=== PATIENT | male | born 1945 | race Caucasian/White ===

== ENCOUNTER 2019-02-17 15:22 | Observation (INO) ==
[2019-02-17 16:03] LABS: BE 2.3 mmoll (-2.0-2.0); BLOOD TYPE VENOUS; HCO3-(ACT) 24.8 mmoll (22-27); PCO2(98.6) 45 mmHg (40-60); PO2(98.6) 16 mmHg (30-55); SAMPLE BLOOD; SAO2 44.1 % (40.0-85.0)
[2019-02-17 16:05] LABS: BASO# 0.04 X1000 (0.0-0.2); BASO% 0.7 % (0.0-0.8); EOS% 1.7 % (0.0-10.0); HEMATOCRIT 49.3 % (42.0-52.0); HEMOGLOBIN 16.9 g/dL (14.0-18.0); IMM GRAN# 0.01 X1000 (0.0-0.04); IMM GRAN% 0.2 % (0.0-0.5); LYMPH# 1.24 X1000 (1.2-3.4); LYMPH% 20.9 % (20.5-51.1); MCH 31.7 PG (27-31); MCHC 34.3 g/dL (33-37); MCV 92.5 FL (81-99); MONO# 0.64 X1000 (0.11-0.59); MONO% 10.8 % (1.7-9.3); MPV 11.6 FL (7.4-10.4); NEUT# 3.91 X1000 (1.4-6.5); NEUT% 65.7 % (42.2-75.2); PLT 113 X1000 (130-400); RBC 5.33 XMIL (4.7-6.1); RDW 13.1 % (11.5-14.5); WBC 5.94 X1000 (4.8-10.8)
[2019-02-17 16:19] LABS: PTT 30.3 Seconds (22.3-41.8)
[2019-02-17 16:20] LABS: BILIRUBIN URINE NEGATIVE (NEGATIVE); BLOOD URINE NEGATIVE (NEGATIVE); CLARITY CLEAR (CLEAR); COLOR YELLOW; GLUCOSE URINE NEGATIVE (NEGATIVE); KETONE URINE TRACE mg/dL (NEGATIVE); LEUKOCYTES URINE TRACE (NEGATIVE); NITRITE URINE NEGATIVE (NEGATIVE); PROTEIN URINE TRACE mg/dL (NEGATIVE); UROBILINOGEN URINE NORMAL
[2019-02-17 16:22] LABS: AGAP 10; BUN 11 mg/dL (8-22); CHLORIDE 106 mmol/L (98-107); COSMO 284; ESTIMATED GFR > 60; GLUCOSE 130 mg/dL (70-104); POTASSIUM 4.5 mmol/L (3.5-5.1); SODIUM 142 mmol/L (136-145); TCO2 27 mmol/L (25-35)
[2019-02-17 16:25] LABS: INR 1.01; PROTIME 13.8 Seconds (11.0-16.0); URINE SOURCE CLEAN CATCH
--- NOTE | 2019-02-17 16:29 | Diag Imaging Result Doc PS360 ---
EXAM: CT HEAD W/O CONTRAST HISTORY: TIA TECHNIQUE: Images were obtained from the skull base to vertex without IV contrast as per standard protocol. COMPARISON: 12/02/2016 FINDINGS: EXAM: CT HEAD W/O CONTRAST HISTORY: TIA TECHNIQUE: COMPARISON: None. FINDINGS: There are no extra-axial collections. There is no evidence for acute infarct or hemorrhage. There is no midline shift or mass effect. There is no hydrocephalus. There is unchanged hypodensity within the deep white matter which is nonspecific in appearance but likely related to microvascular disease. Unchanged old left lacunar infarct. There is diffuse cerebral atrophy. IMPRESSION: Atrophy and microvascular disease. No acute intracranial abnormality is appreciated. This exam was performed using automated exposure control, adjustment of mA or kV according to patient size, and/or use of iterative reconstruction technique. IMPRESSION: This exam was performed using automated exposure control, adjustment of mA or kV according to patient size, and/or use of iterative reconstruction technique. Electronically signed by Shae Raphael 02/17/2019 4:27 PM
[2019-02-17 16:30] LABS: URINE BACTERIA NEGATIVE /HFP; URINE CAST NONE SEEN /LPF; URINE CRYSTAL NONE SEEN /HPF; URINE EPITHELIAL CELLS <10 /HPF (<10); URINE RBC <10 /HPF (<10); URINE WBC <10 /HPF (<10); URINE YEAST NONE SEEN /HPF
[2019-02-17] MEDS ORDERED: NS 1,000 ML IV SCH (17:45)
--- NOTE | 2019-02-17 18:28 | PROVIDER DOCUMENTATION ---
This chart was entered by Mira Davis Scribe, acting as scribe for Tenzin Mitchell MD. HPI-Neurological Disorder - General Chief Complaint: Numbness Stated Complaint: LIGHT HEADED, RT HAND NUMB Time Seen by Provider: 02/17/19 15:47 Source: patient Allergies/Adverse Reactions: Patient Allergies Allergy/AdvReac Type Severity Reaction Status Date / Time exenatide [From [place]] Allergy Unknown Verified 12/01/16 23:56 Home Medications: Home Medication List Medication Instructions Recorded Confirmed Last Taken Type Glipizide [Glipizide Xl] 1 tab PO ORDERED 09/27/16 02/17/19 05/24/18 08:30 History Ramipril 1 tab PO DAILY 09/27/16 02/17/19 05/24/18 08:30 History Pioglitazone [Actos] 30 mg pe PO DAILY 05/25/18 02/17/19 05/24/18 08:30 History Dipyridamole/Aspirin S.a. 1 unit PO DAILY 02/17/19 02/17/19 Unknown History [Aggrenox] Ranitidine HCl [Zantac 75] 300 mg PO DAILY 02/17/19 02/17/19 Unknown History Temazepam 30 mg PO DAILY 02/17/19 02/17/19 Unknown History - History of Present Illness-Neuro Nature of Presenting Problem: 73 yom presents to ED c/o lightheadness, dizziness, right hand numbness, facial flushing and headache that statrted about 2:15 today while at a restaurant with a friend. Pt friend states pt got very pale but had no slurred speech. Pt denies nausea, vomiting, chest pain, or SOB. Pt has hx of TIA, HTN and DM. Onset/Duration: reports: 1-3 hours ago Timing: reports: gone now Review of Systems - Adult - REVIEW OF SYSTEMS - ADULT Constitutional: reports: see HPItelly. denies: chills, fever Eyes: reports: no symptoms reported Ears, Nose, Mouth & Throat: reports: no symptoms reported Cardiovascular: reports: no symptoms reported Respiratory: reports: no symptoms reported Gastrointestinal: reports: see HPI. denies: nausea, vomiting Genitourinary: reports: no symptoms reported Musculoskeletal: reports: no symptoms reported Integumentary: reports: no symptoms reported Neurological: reports: see HPI, dizziness/vertigo, headache/migraines, numbness. denies: slurred speech, syncope Psychiatric: reports: no symptoms reported Endocrine: reports: no symptoms reported Hematologic/Lymphatic: reports: no symptoms reported Allergic/Immunologic: reports: no symptoms reported All Other Systems: Reviewed and Negative Past History - Adult - PAST MEDICAL HISTORY-ADULT Review of Records: reports: Nursing Assessment Review, Medications Reviewed, Social history reviewed & non-contributory. Major Childhood Illnesses: reports: denies history Cardiovascular: reports: HTN Respiratory: reports: denies history Gastrointestinal: reports: denies history Obstetrical/Gynecological: reports: denies history Genitourinary: reports: denies history Musculoskeletal: reports: denies history Neurological: reports: CVA, stroke deficits (L side) Endocrine/Immune: reports: Diabetes Other Conditions: reports: denies history - PRIOR SURGERIES/PROCEDURES Surgical/Procedure History: reports: appendectomy, cholecystectomy - IMMUNIZATION STATUS Childhood Immunizations: See Nurse Assessment Flu Vaccine: See Nurse Assessment - FAMILY HISTORY Family History: reviewed, not pertinent - SOCIAL HISTORY Smoking: denies Physical Exam- Neurological - Physical Exam-Neuro Initial Vital Signs Reviewed: Yes General Appearance: appears well, alert, no apparent distress. negative: combative Eye Exam: bilateral eye: normal inspection, PERRL HENMT: moist mucous membranes, normal ENT inspection. negative: angioedema Head Injury: no evidence of injury. negative: active bleeding, Rice's Sign, contusions Neck: non-tender, full range of motion, supple, normal inspection. negative: Brudzinski's sign, carotid bruit Respiratory: chest non-tender, lungs clear, normal breath sounds, no pleuratic chest pain, no respiratory distress, no accessory muscle use. negative: crackles, rales, rhonchi Cardiovascular: normal peripheral pulses, regular rate, rhythm, no edema, no gal lop, no JVD, no murmur. negative: bradycardia, tachycardia Abdominal Exam: normal bowel sounds, non tender, soft, no organomegaly. negat nguyen: rigid, rebound, tenderness Lymphatic: no adenopathy. negative: striations Extremity: normal range of motion, normal inspection. 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 negative: facial droop, focal weakness Integumentary: normal color, normal turgor, warm/dry. negative: diaphoresis, jaundice Psych/Mental Status: normal mood/affect, normal thought content, normal thought process, oriented x 3 Progress - PLAN OF CARE/RESULTS Progress/Plan/Lab Results: Vital Signs - 8 hr 02/17/19 15:27 02/17/19 17:34 Temperature 98.2 F Pulse Rate 68 61 Respiratory Rate 18 18 Blood Pressure 174/93 146/85 O2 Sat by Pulse Oximetry 97 98 Laboratory Results - last 24 hr 02/17/19 02/17/19 02/17/19 15:50 15:50 15:50 WBC RBC Hgb Hct MCV MCH MCHC RDW Std Deviation Plt Count MPV Immature Gran % (Auto) Neut % (Auto) Lymph % (Auto) [place] % (Auto) Eos % (Auto) Baso % (Auto) Immature Gran # (Auto) Neut # (Auto) Lymph # (Auto) [place] # (Auto) Eos # (Auto) Baso # (Auto) PT INR PTT (Actin FS) Specimen Type VENOUS VBG pH 7.40 VBG pCO2 45 VBG pO2 16 L VBG HCO3 24.8 VBG O2 Saturation 44.1 VBG Base Excess 2.3 H Sodium 142 Potassium 4.5 Chloride 106 Carbon Dioxide 27 Anion Gap 10 BUN 11 Creatinine 1.0 Estimated GFR/1.73 m2 > 60 BUN/Creatinine Ratio 11 Glucose 130 H POC Glucose Calculated Osmolality 284 Calcium 9.0 Magnesium 2.0 Troponin T Plasma Lactate Urine Source Urine Color Urine Clarity Urine pH Ur Specific [place] Urine Protein Urine Ketones Urine Blood Urine Nitrite Urine Bilirubin Urine Urobilinogen Urine Microscopic RBC Urine WBC Urine Microscopic WBC Ur Epithelial Cells Urine Crystals Urine Bacteria Urine Casts Urine Yeast Urine Glucose Acetone Level NEGATIVE 02/17/19 02/17/19 02/17/19 15:50 15:50 15:50 WBC 5.94 RBC 5.33 Hgb 16.9 Hct 49.3 MCV 92.5 MCH 31.7 H MCHC 34.3 RDW Std Deviation 13.1 Plt Count 113 L MPV 11.6 H Immature Gran % (Auto) 0.2 Neut % (Auto) 65.7 Lymph % (Auto) 20.9 [place] % (Auto) 10.8 H Eos % (Auto) 1.7 Baso % (Auto) 0.7 Immature Gran # (Auto) 0.01 Neut # (Auto) 3.91 Lymph # (Auto) 1.24 [place] # (Auto) 0.64 H Eos # (Auto) 0.10 Baso # (Auto) 0.04 PT 13.8 INR 1.01 PTT (Actin FS) 30.3 Specimen Type VBG pH VBG pCO2 VBG pO2 VBG HCO3 VBG O2 Saturation VBG Base Excess Sodium Potassium Chloride Carbon Dioxide Anion Gap BUN Creatinine Estimated GFR/1.73 m2 BUN/Creatinine Ratio Glucose POC Glucose Calculated Osmolality Calcium Magnesium Troponin T Plasma Lactate 1.6 Urine Source Urine Color Urine Clarity Urine pH Ur Specific [place] Urine Protein Urine Ketones Urine Blood Urine Nitrite Urine Bilirubin Urine Urobilinogen Urine Microscopic RBC Urine WBC Urine Microscopic WBC Ur Epithelial Cells Urine Crystals Urine Bacteria Urine Casts Urine Yeast Urine Glucose Acetone Level 02/17/19 02/17/19 02/17/19 15:50 15:50 15:57 WBC RBC Hgb Hct MCV MCH MCHC RDW Std Deviation Plt Count MPV Immature Gran % (Auto) Neut % (Auto) Lymph % (Auto) [place] % (Auto) Eos % (Auto) Baso % (Auto) Immature Gran # (Auto) Neut # (Auto) Lymph # (Auto) [place] # (Auto) Eos # (Auto) Baso # (Auto) PT INR PTT (Actin FS) Specimen Type VBG pH VBG pCO2 VBG pO2 VBG HCO3 VBG O2 Saturation VBG Base Excess Sodium Potassium Chloride Carbon Dioxide Anion Gap BUN Creatinine Estimated GFR/1.73 m2 BUN/Creatinine Ratio Glucose POC Glucose 110 H Calculated Osmolality Calcium Magnesium Troponin T < 0.010 Plasma Lactate Urine Source CLEAN CATCH Urine Color YELLOW Urine Clarity CLEAR Urine pH 5.0 Ur Specific [place] 1.020 Urine Protein TRACE A Urine Ketones TRACE Urine Blood NEGATIVE Urine Nitrite NEGATIVE Urine Bilirubin NEGATIVE Urine Urobilinogen NORMAL Urine Microscopic RBC <10 Urine WBC TRACE A Urine Microscopic WBC <10 Ur Epithelial Cells <10 Urine Crystals NONE SEEN Urine Bacteria NEGATIVE Urine Casts NONE SEEN Urine Yeast NONE SEEN Urine Glucose NEGATIVE Acetone Level Orders Category Date Time Status Admit - [facility] Routine AdmDCTranf 02/17/19 17:40 Active Activity - Up with Assistance ORDERED Care 02/17/19 17:40 Active Cardiac Monitoring DIRECTED Care 02/17/19 15:48 Active DVT/PE Risk Assess/Protocol [QM] ORDERED Care 02/17/19 17:40 Active Finger Stick Blood Sugar (ED) DIRECTED Care 02/17/19 15:48 Active Intake and Output-Strict ORDERED Care 02/17/19 17:40 Active Saline Loc NOW Care 02/17/19 15:48 Active Vital Signs Order Q 8-HR ASSESS Care 02/17/19 17:40 Active Z-Document. for Tele Applied ORDERED Care 02/17/19 17:40 Active Diabetic Diet Diet 02/17/19 17:[address] HEAD W/O CONTRAST [CT] Stat Exams 02/17/19 15:51 Completed ACETONE SERUM [CHEM] Stat Lab 02/17/19 15:50 Completed BMP [BASIC METABOLIC PANEL] [CHEM] Stat Lab 02/17/19 15:50 Completed CBC WITH ELECTRONIC DIFF [HEME] Stat Lab 02/17/19 15:50 Completed CBC WITH NO DIFF [HEME] Routine Lab 02/18/19 06:00 Ordered COMPREHENSIVE METABOLIC PANEL [CHEM] Routine Lab 02/18/19 06:00 Uncollected LACTATE, PLASMA [CHEM] Stat Lab 02/17/19 15:50 Completed MAGNESIUM [CHEM] Routine Lab 02/18/19 06:00 Uncollected MAGNESIUM [CHEM] Stat Lab 02/17/19 15:50 Completed PROTIME WITH INR [COAG] Stat Lab 02/17/19 15:50 Completed PTT [COAG] Stat Lab 02/17/19 15:50 Completed TROPONIN T Stat Lab 02/17/19 15:50 Completed TSH Routine Lab 02/18/19 06:[address] W/POSS RFLX CULT [URINALYSIS] Stat Lab 02/17/19 15:50 Completed URINE CULTURE [RM] Routine Lab 02/17/19 16:[address]LOOD G[address] [RESP] Routine Lab 02/17/19 15:50 Completed 0.9% Sodium Chloride Inj [Ns] 1,000 ml Med 02/17/19 17:45 Active IV 75 mls/hr Dipyridamole/Aspirin S.a. [Aggrenox] Med 02/18/19 09:00 Active 1 each PO DAILY RAMIpril [Altace] Med 02/18/19 09:00 Active 10 mg PO DAILY Ranitidine [Zantac] Med 02/18/19 09:00 Active 300 mg PO DAILY Telemetry [OM.EQ] Routine Oth 02/17/19 17:40 Active Carotid Ultrasound Timed Ther 02/17/19 17:40 Ordered EKG [EKG] Stat Ther 02/17/19 15:48 Ordered Echo Spec/Color Dop W/O Contra Routine Ther 02/18/19 06:00 Ordered Transfer/Admit Order [TRANSFER] Routine Transfer 02/17/19 17:43 Ordered Result Diagrams: 02/17/19 15:50 02/17/19 15:50 - REASSESSMENT Reassessment #1 Time Reassessed: 18:27 Status: improving (HAS BEEN SEEN BY DR FORTUNE, REMAINS STABLE AND NO NEW DEFICIT.) - CT/MRI 1 CT Study: Head Impression: See EMR Report (IMPRESSION: Atrophy and microvascular disease. No a cute intracranial abnormality is appreciated. This exam was performed using automated exposure control, adjustment of mA or kV according to patient size, and/or use of iterative reconstruction technique. IMPRESSION: This exam was performed using automated exposure control, adjustment of mA or kV according to patient size, and/or use of iterative reconstruction technique. Electronically signed by Shae Raphael 02/17/2019 4:27 PM) - CONSULTS/PCP/HOSPITALIST Notification #1 *Consult/PCP/Hospitalist*: DR FORTUNE Time Discussed: 17:15 Consult Disposition: Admit (TIA IS POSSIBLE) Departure - Departure Date of Disposition Decision: 02/17/19 Time of Disposition Decision: 18:27 DIAGNOSIS: TIA (transient ischemic attack) Disposition: ADMITTED INPATIENT 09 Certified Medical Emergency: Emergent Condition: Stable Referrals and Follow-Ups: Latisha Howard CRNP [Primary Care Provider] - - Critical Care Note This patient required my direct & personal management of CC.: No Attestation - Physician/ KINGA Attestation Patient care was provided by Advanced Practice Provider:: No The physician spent face to face time with patient:: Yes Advanced Practice Provider documentation review:: Supervising physician onsite and consulted in the evaluation and care of this patient. The physician did have a face to face encounter with the patient. - NIH Stroke Scale NIH Type: Initial Evaluation Level of Consciousness: 0-Alert LOC Questions (ask month and age): 0-Answers Both Correctly LOC Commands (ask to open & close eyes;make a fist, let go): 0-Obeys Both Correctly Best Gaze (horizontal eye movement): 0-Normal Visual (use finger movement, counting or visual threat): 0-No Visual Loss Facial Palsy (show teeth or raise eyebrows & close eyes tght: 0-Symmetrical Movement Motor Function-left arm: 0-Normal Motor Function-right arm: 0-Normal Motor Function-left le-Normal Motor Function-right le-Normal Limb Ataxia([id number]-[id number], or heel to duffy): 0-No Ataxia Sensory(pin prick to face,arms,trunk,legs-compare side/side): 1-Mild to Moderate Decrease in Sensation Best Language(name item/read sentence.Ex-Down to Earth): 0-No Aphasia Dysarthria(Pt read words or say words Ex.Mama,Tip-Top,Thanks: 0-Normal Articulation Extinction and Inattention: 0-Normal NIH Total Score: 1 This chart was documented by the indicated scribe, (Mira Davis, Scribe) and accurately reflects the services I performed and decisions made by me, Tenzin Mitchell MD, as attested by the provider's signature.
[2019-02-17] MEDS ORDERED: RESTORIL PO SCH (21:45)
--- NOTE | 2019-02-18 01:11 | HISTORY AND PHYSICAL ---
CHIEF COMPLAINT: Lightheaded, right hand numbness. HISTORY OF PRESENT ILLNESS: Patient is a 71-year-old male who presented to the emergency department complaining of being lightheaded, numbness, tingling in his right hand. Denies any focalized weakness. Did have some facial flushing. He noted symptoms started earlier while he was at a restaurant. States similar symptoms a year ago when he had another TIA, stroke-like effect. Notes that all those symptoms did eventually resolve. ALLERGIES: Exenatide causing nausea. MEDICATIONS: 1. Glipizide. 2. Ramipril. 3. Actos 30. 4. Aggrenox. 5. Temazepam. PAST MEDICAL HISTORY: 1. Diabetes with recent episodes of hypoglycemia. 2. Hypertension. 3. History of CVA and TIAs. His stroke has minimal left-sided effects residually. 4. Appendectomy. 5. Cholecystectomy. FAMILY HISTORY: Noncontributory. SOCIAL HISTORY: Patient does not smoke. Does not drink. Primary care is [facility]. PHYSICAL EXAMINATION: VITAL SIGNS: Temperature 98.2 degrees, pulse 68, respiratory 18, BP 174/93 to 146/85. GENERAL: Patient is very pleasant to talk with. Currently in no respiratory distress. HEENT: Normocephalic. NECK: Supple. CARDIOVASCULAR: Regular rate. No murmurs. CHEST: Clear and nonlabored. ABDOMEN: Soft, nondistended, nontender. EXTREMITIES: Moves all extremities. NEUROLOGIC: Currently, he has no focal neurological deficits on the right. This this does appear to have completely resolved. He is awake, alert, oriented. ASSESSMENT: 1. Transient ischemic attack. 2. Diabetes with what appears to be hypoglycemic episode. 3. Hypertension. 4. Others. PLAN: We will continue patient in the hospital. We will place him on hypoglycemia protocol. We will hold his glipizide. Check carotid and echo. If these are normal, hopefully he can be discharged home. cc: Conrad Engel MD
[2019-02-18 05:48] VITALS: BP 126/69
[2019-02-18 07:17] LABS: HEMATOCRIT 45.2 % (42.0-52.0); HEMOGLOBIN 15.4 g/dL (14.0-18.0); MCH 31.3 PG (27-31); MCHC 34.1 g/dL (33-37); MCV 91.9 FL (81-99); MPV 11.4 FL (7.4-10.4); RBC 4.92 XMIL (4.7-6.1); WBC 4.37 X1000 (4.8-10.8)
[2019-02-18 08:29] LABS: AGAP 8; ALBUMIN 3.3 g/dL (3.5-5.0); ALKALINE PHOSPHATASE 66 U/L (32-122); BUN 12 mg/dL (8-22); CHLORIDE 110 mmol/L (98-107); COSMO 285; CREATININE 0.9 mg/dL (0.7-1.2); ESTIMATED GFR > 60; GLUCOSE 101 mg/dL (70-104); GOT 20 U/L (10-34); GPT 18 U/L (10-44); POTASSIUM 3.8 mmol/L (3.5-5.1); SODIUM 143 mmol/L (136-145); TCO2 25 mmol/L (25-35); TOTAL PROTEIN 5.6 g/dL (6.3-8.3)
[2019-02-18] MEDS ORDERED: ZANTAC PO SCH (09:00)
[2019-02-18] MEDS ORDERED: ALTACE PO SCH (09:00)
[2019-02-18] MEDS ORDERED: AGGRENOX PO SCH (09:00)
--- NOTE | 2019-02-18 11:23 | Extremity Venous Study ---
EXAM: Carotid Ultrasound - 02/18/2019 HISTORY: TIA TECHNIQUE: Carotid flow studies COMPARISON: 09/27/2016 FINDINGS: There is no substantial atherosclerotic plaquing identified in the right carotid system. Maximum systolic velocity in the right internal carotid is 87 cm/s, and maximum diastolic velocity is 33 cm/s. The right internal to common carotid systolic velocity ratio is 0.81. The flow velocities and ratio are consistent with 0-39% stenosis at the right internal carotid. The right vertebral demonstrates antegrade flow. There is no substantial atherosclerotic plaquing identified in the left carotid system. Maximum systolic velocity in the left internal carotid is 100 cm/s, maximum diastolic velocity is 28 cm/s. The left internal to common carotid systolic velocity ratio is 1.03. The flow velocities and ratio are consistent with 0-39% stenosis carotid. The left vertebral demonstrates antegrade flow. IMPRESSION: 0-39% stenosis at right internal carotid. 0-39% stenosis at left internal carotid. Electronically signed by Edgard Hanna 02/18/2019 11:20 AM
--- NOTE | 2019-02-18 22:42 | ECHO REPORT ---
ORDER DATE: 02/18/2019 MEASUREMENTS: 1. Septal thickness 1.1. 2. Left ventricular internal diameter diastole 4.5. 3. Posterior wall thickness 1.1. 4. Left ventricular internal diameter in systole 2.6. 5. Left atrium 4.3. 6. Aortic root 3.6. SUMMARY: 1. Fair quality study. 2. Aortic valve is trileaflet and opens normally on 2-dimensional images. Peak gradient across the aortic valve is less than 10 mmHg. Mitral, tricuspid and pulmonic valves are without evidence of structural abnormality with very mild mitral regurgitation and mild tricuspid regurgitation. The estimated systolic PA pressure by Doppler is 37 mmHg. The aortic root is normal in size. 3. Normal left ventricular dimensions demonstrated. Estimated left ejection fraction appears to be at least 65%. No regional wall motion abnormalities evident. Doppler suggests grade 1 left ventricular diastolic dysfunction. Left atrium is mildly enlarged. Right atrium and right ventricle are normal in size with grossly preserved right ventricular systolic function. 4. No pericardial effusion. 5. Appearance of inferior vena cava suggests normal central venous pressure. cc: MD Conrad Jeffrey MD
--- NOTE | 2019-02-19 03:39 | DISCHARGE SUMMARY ---
ADMISSION DATE: 02/17/2019 DISCHARGE DATE: 02/18/2019 PRIMARY CARE PROVIDER: DAWN Walters. DISCHARGE DIAGNOSES: 1. Transient ischemic attack with symptoms resolved. 2. Diabetes mellitus with what appears to be hypoglycemic episode. 3. Hypertension. DIAGNOSTICS: 1. CT of the head revealed atrophy and microvascular disease. No acute intracranial abnormality is appreciated. 2. Carotid Doppler study revealed 0 to 39% stenosis at the right internal carotid and 0 to 39% stenosis at the left internal carotid. 3. Echocardiogram is pending. HOSPITAL COURSE: Mr. Sánchez presented to the emergency room after having an episode of being lightheaded, having numbness and tingling in his right hand while sitting at a restaurant. He had symptoms similar about a year prior, was diagnosed with a TIA. Symptoms resolved prior to coming to the emergency room. They have not really reoccurred, thankfully, and he is ready for discharge. DISCHARGE VITAL SIGNS: Blood pressure is 126/69 with a heart rate of 54, respirations 21, temperature 97.4 degrees oral, room air saturation is 97% to 98%. DISCHARGE PHYSICAL EXAMINATION: Cardiovascular: Regular rate and rhythm. S1, S2 appreciated. Pulmonary: Breath sounds are clear. No increased work of breathing noted. Gastrointestinal: Abdomen is soft, nontender, nondistended. Bowel sounds in all 4 quadrants. Extremities: No clubbing, cyanosis, or edema. Calves are nontender bilateral. DISCHARGE MEDICATIONS: 1. Restoril 30 mg p.o. at bedtime. 2. Ramipril 10 mg p.o. daily. 3. Zantac 300 mg p.o. daily. 4. Aggrenox 1 b.i.d. FOLLOW-UP: DAWN Walters, 02/23/2019 at 1:15 p.m. DISCHARGE INSTRUCTIONS: He has been instructed to call to be seen sooner or return to emergency room for any syncope, dizziness, chest pain, palpitations, shortness of breath, temperature greater than 101, any recurring symptoms, dizziness, generalized weakness, change in sensation to extremities, change in speech or for any other questions or concerns that he may have. Dictated by DAWN Renee for Conrad Engel MD cc: DAWN Renee MD Kim Harbin, CRNP
--- NOTE | 2019-02-19 17:19 | DISCHARGE SUMMARY ---
ADMISSION DATE: 02/17/2019 DISCHARGE DATE: 02/18/2019 ADDENDUM: Patient seen and examined by myself, full note dictated and discussed with nurse practitioner. On discharge patient is awake, alert, currently in no distress. All of his TIA type symptoms have resolved and therefore he will be discharged home. His sugar was low on admission which is likely the actual cause of his current symptoms. Blood sugars been in the 80s while he has been in the hospital. We have actually held his glipizide and Actos. Discussed with patient that continue to hold these at home. If his blood sugar starts elevating he will restart Actos. Discussed that he may need to consider taking other medications than glimepiride due to hypoglycemia. cc: Conrad Engel MD
== END 2019-02-18 12:55 | disposition home or self-care (01) ==
LOC: P.MEDSURG 15:22 → P.ED 15:22
PROVIDERS: ATTEND Family Medicine
CPT/HCPCS: 70450; 80048; 80053; 81001; 82009; 82805; 82948; 83605; 83735; 84443; 84484; 85025; 85027; 85610; 85730; 87088; 93005; 93306; 93880; 96360; 96361; 99285; A9270; XXXXX